=== PATIENT | female | born 2000 | race Caucasian/White ===

== ENCOUNTER → 2020-09-04 16:23 | Outpatient (BNVA) | payer SELFPAY | PROVIDERS: Visit Provider Nurse Practitioner Family | DX: N91.2 Amenorrhea, unspecified (principal); E78.5 Hyperlipidemia, unspecified; J32.9 Chronic sinusitis, unspecified | CPT/HCPCS: 80053; 80061; 81025; 84146; 84403; 84443; 85025 ==